=== PATIENT | male | born 1975 | race African-American/Black ===

== ENCOUNTER 2019-06-22 20:17 | Emergency (ER) | payer SELFPAY ==
[~2019-06-22] VITALS: Ht 170.2 cm; Wt 68.0 kg
[2019-06-22 20:49] VITALS: BP 117/70
[2019-06-22] MEDS: TETRACAINE HCL 0.5% OPTH(EYE) SOLN 4ML LEFTEYE ONE (22:45)
== END 2019-06-22 23:28 | disposition home or self-care (01) ==
LOC: ER 20:20
DX: S00.211A Abrasion of right eyelid and periocular area, initial encounter (principal); X58.XXXA Exposure to other specified factors, initial encounter; Y93.89 Activity, other specified; Y99.8 Other external cause status; Y92.89 Other specified places as the place of occurrence of the external cause

== ENCOUNTER 2019-07-20 18:17 | Emergency (ER) | payer SELFPAY ==
[~2019-07-20] VITALS: Ht 167.6 cm; Wt 63.5 kg
[2019-07-20 20:11] VITALS: BP 121/80
[2019-07-20] MEDS ORDERED: FLUORESCEIN SOD 1 MG TEST STRIP LEFTEYE ONE (20:45)
[2019-07-20] MEDS ORDERED: TETRACAINE HCL 0.5% OPTH(EYE) SOLN 4ML LEFTEYE ONE (20:45)
== END 2019-07-20 21:41 | disposition home or self-care (01) ==
LOC: ER 18:18
DX: S05.02XA Injury of conjunctiva and corneal abrasion without foreign body, left eye, initial encounter (principal); F17.210 Nicotine dependence, cigarettes, uncomplicated; F12.10 Cannabis abuse, uncomplicated; Y04.8XXA Assault by other bodily force, initial encounter; Y93.89 Activity, other specified; Y99.8 Other external cause status; Y92.89 Other specified places as the place of occurrence of the external cause

== ENCOUNTER 2022-11-07 10:10 | Emergency (ER) | payer SELFPAY ==
[~2022-11-07] VITALS: Ht 170.2 cm; Wt 61.6 kg
[2022-11-07] MEDS ORDERED: SODIUM CHLORIDE 0.9% 1,000 ML IVB ONE (11:00)
[2022-11-07] MEDS ORDERED: PANTOPRAZOLE 40 MG/10 ML VIAL INJ IV ONE (11:00)
[2022-11-07] MEDS ORDERED: PROCHLORPERAZINE EDISYLATE 5 MG/ML 2ML VIAL IV ONE (11:00)
[2022-11-07] MEDS ORDERED: MORPHINE SULFATE 4 MG/ML SYR/VIAL IV ONE (11:00)
[2022-11-07 11:25] LABS: Basophils # (auto) 0 10 ^3/uL (0-0.2); Eosinophils # (auto) 0 10 ^3/uL (0-0.8); Hemoglobin 15.3 g/dL (13.5-17.5); Monocytes # (auto) 0.2 10 ^3/uL (0-1.3); Neutrophils # (auto) 3.8 10 ^3/uL (1.6-8.6)
[2022-11-07 11:27] LABS: Basophils % (auto) 0.4 % (0.0-2.0); Eosinophils % (auto) 0.1 % (0.0-7.0); Hematocrit 43.9 % (41.0-53.0); Lymphocytes # (auto) 0.9 10 ^3/uL (0.4-5.4); Lymphocytes % (auto) 17.5 % (10.0-50.0); Mean Corpuscular Hemoglobin 35.2 pg (28.0-32.0); Mean Corpuscular Hgb Conc. 34.9 g/dL (32.0-36.0); Mean Corpuscular Volume 100.9 fL (80.0-100.0); Monocytes % (auto) 4.5 % (0.0-12.0); Neutrophils % (auto) 77.5 % (37.0-80.0); Nucleated Red Blood Cells % 0.1 %; Red Blood Cells 4.35 10^6/uL (4.5-5.90); Red Cell Distribution Width 13.4 % (11.8-14.3); White Blood Cell 4.9 10^3/uL (4.4-10.8)
[2022-11-07 11:39] LABS: INR 0.93 (0.9-1.15); Partial Thromboplastin Time 22.9 sec (24.6-33.4)
[2022-11-07 11:52] LABS: Potassium 4.1 mmol/L (3.5-5.1)
[2022-11-07 11:58] LABS: Albumin 3.7 g/dL (3.4-5.0); BUN/Creatinine Ratio 12.6 (10.0-20.0); Bilirubin, Total 0.5 mg/dL (0.2-1.0); Calcium 8.3 mg/dL (8.5-10.1); Magnesium 2.1 mg/dL (1.6-2.6); Total Protein 7.4 g/dL (6.4-8.2)
[2022-11-07] MEDS ORDERED: PANT40TA2 PO (12:29)
[2022-11-07] MEDS ORDERED: ZOFR4T PO (12:29)
[2022-11-07 14:10] VITALS: BP 128/78
== END 2022-11-07 14:14 | disposition home or self-care (01) ==
LOC: ER 10:10
DX: R10.84 Generalized abdominal pain (principal); R74.8 Abnormal levels of other serum enzymes; F12.90 Cannabis use, unspecified, uncomplicated; F17.210 Nicotine dependence, cigarettes, uncomplicated
CPT/HCPCS: 36415; 74176; 80053; 83690; 83735; 85025; 85610; 85730; 96361; 96374; 96375; 99285; C9113; J0780; J7030

== ENCOUNTER 2023-09-02 12:06 | Inpatient (IN) | payer MEDICAID ==
[~2023-09-02] VITALS: Ht 168.9 cm; Wt 60.2 kg
[~2023-09-02 12:06] MED LIST: PANT40TA2 PO; ZOFR4T PO
[2023-09-02 13:19] LABS: Basophils # (auto) 0 10 ^3/uL (0-0.2); Monocytes # (auto) 0.7 10 ^3/uL (0-1.3); Neutrophils # (auto) 8.4 10 ^3/uL (1.6-8.6); Nucleated Red Blood Cells % 0.9 %
[2023-09-02 13:21] LABS: Alanine Aminotransferase 15 U/L (7-40); Albumin 4.3 g/dL (3.2-4.8); Alkaline Phosphatase 102 U/L (46-116); Anion Gap 13 (5-15); Aspartate Aminotransferase 28 U/L (13-40); BUN/Creatinine Ratio 6.4 (10.0-20.0); Bilirubin, Total 0.7 mg/dL (0.2-1.0); Blood Urea Nitrogen 18 mg/dL (9-23); Calcium 9.9 mg/dL (8.7-10.4); Carbon Dioxide 20 mmol/L (20-30); Chloride 97 mmol/L (98-107); Glucose 121 mg/dL (74-106); Lipase 659 U/L (12-53); Potassium 4.2 mmol/L (3.5-5.1); Sodium 130 mmol/L (136-145); Total Protein 7.9 g/dL (5.7-8.2)
[2023-09-02 13:22] LABS: Basophils % (auto) 0.3 % (0.0-2.0); Eosinophils # (auto) 0 10 ^3/uL (0-0.8); Eosinophils % (auto) 0.3 % (0.0-7.0); Hematocrit 52.4 % (41.0-53.0); Hemoglobin 18.2 g/dL (13.5-17.5); Lymphocytes # (auto) 1.1 10 ^3/uL (0.4-5.4); Lymphocytes % (auto) 10.7 % (10.0-50.0); Mean Corpuscular Hemoglobin 34.6 pg (28.0-32.0); Mean Corpuscular Hgb Conc. 34.8 g/dL (32.0-36.0); Mean Corpuscular Volume 99.6 fL (80.0-100.0); Monocytes % (auto) 7.1 % (0.0-12.0); Neutrophils % (auto) 81.6 % (37.0-80.0); Red Blood Cells 5.26 10^6/uL (4.5-5.90); Red Cell Distribution Width 13.1 % (11.8-14.3); White Blood Cell 10.3 10^3/uL (4.4-10.8)
[2023-09-02] MEDS: SODIUM CHLORIDE 0.9% 1,000 ML IV ONE ×2 (14:00→21:24)
[2023-09-02] MEDS ORDERED: MORPHINE SULFATE INJ 2 MG/ml SYRG IV PRN (16:30)
[2023-09-02] MEDS ORDERED: DEXTROSE (50%) 50ML SYRG IV PRN (16:30)
[2023-09-02] MEDS ORDERED: DOCUSATE SOD 100 MG CAP PO PRN (16:30)
[2023-09-02] MEDS ORDERED: ACETAMINOPHEN 325 MG TAB PO PRN (16:30)
[2023-09-02] MEDS ORDERED: NITROGLYCERIN 0.4 MG SL TAB SL PRN (16:30)
[2023-09-02] MEDS ORDERED: HYDROcodone-ACET 5/325MG TAB PO PRN (16:30)
[2023-09-02] MEDS: SODIUM CHLORIDE 0.9% 1,000 ML IV SCH (16:30)
[2023-09-02] MEDS: PIPERACILLIN-TAZOB 3.375GM 100 ML IV ONE (17:39)
[2023-09-02] MEDS: PANTOPRAZOLE 40 MG/10 ML VIAL INJ IV ONE (17:39)
[2023-09-02] MEDS: fentaNYL CITRATE 100 MCG/2 ML VL IV ONE (17:43)
[2023-09-02] MEDS ORDERED: LORazepam 2MG/ML-1ML VIAL IV PRN (19:15)
[2023-09-02] MEDS: FOLIC ACID 1 MG, MAGNESIUM SULF SDV 50% 8 MEQ, MULTIPLE VITAMIN 10 ML, THIAMINE INJ 100... INJ SCH (21:24)
[2023-09-02] MEDS: ONDANSETRON HCL 4 MG/2 ML VIAL IV PRN (21:42)
[2023-09-02] MEDS: MORPHINE SULFATE INJ 2 MG/ml SYRG IV PRN (21:43)
[2023-09-02 21:47] VITALS: PULSE 93; RESP 16; O2SAT 98
[2023-09-02 21:51] LABS: Urine Bacteria FEW /hpf (None Seen); Urine Blood 1+ /uL (Negative); Urine Clarity Turbid (Clear); Urine Color Yellow (Yellow); Urine Protein, UAD 2+ (Negative); Urine Specific Gravity 1.018 (1.001-1.035); Urine Urobilinogen Normal (Negative); Urine WBC 72 /hpf (0 - 3); Urine WBC Clumps PRESENT /hpf (None Seen)
[2023-09-02 22:04] LABS: Amphetamine Screen, Urine Neg (NEGATIVE); Barbiturate Scree,Urine Neg (NEGATIVE); Benzodiazephine Screen, Urine Neg (NEGATIVE); Cannabinoid Screen, Urine Neg (NEGATIVE); Cocaine Screen, Urine Neg (NEGATIVE); Opiate Scree,Urine Neg (NEGATIVE); Phencyclidine Screen, Urine Neg (NEGATIVE)
[2023-09-02] MEDS: ACCU-CHEK COMFORT CURVE STRIP VI SCH (22:23)
[2023-09-02] MEDS: MEROPENEM 1GM IVPB 50 ML IV SCH (22:40)
[2023-09-02 23:55] VITALS: BP 114/76; PULSE 87; RESP 17; TEMP 98.1; O2SAT 98
[2023-09-03] VITALS (8 sets, daily range): BP systolic 100–120; BP diastolic 68–76; PULSE 87–112; RESP 17–20; TEMP 97.7–98.8; O2SAT 94–98
[2023-09-03 05:55] LABS: Basophils # (auto) 0 10 ^3/uL (0-0.2); Basophils % (auto) 0.2 % (0.0-2.0); Eosinophils # (auto) 0.1 10 ^3/uL (0-0.8); Lymphocytes # (auto) 0.7 10 ^3/uL (0.4-5.4); Lymphocytes % (auto) 8.7 % (10.0-50.0); Mean Corpuscular Volume 100.2 fL (80.0-100.0); Monocytes # (auto) 0.6 10 ^3/uL (0-1.3); Monocytes % (auto) 7.8 % (0.0-12.0); Neutrophils # (auto) 6.9 10 ^3/uL (1.6-8.6); Neutrophils % (auto) 82.3 % (37.0-80.0); Nucleated Red Blood Cells % 0.1 %; Red Blood Cells 3.99 10^6/uL (4.5-5.90); Red Cell Distribution Width 13.4 % (11.8-14.3); White Blood Cell 8.3 10^3/uL (4.4-10.8)
[2023-09-03 06:09] LABS: Albumin 3.6 g/dL (3.2-4.8); Alkaline Phosphatase 66 U/L (46-116); Anion Gap 11 (5-15); Aspartate Aminotransferase 25 U/L (13-40); BUN/Creatinine Ratio 6.8 (10.0-20.0); Blood Urea Nitrogen 15 mg/dL (9-23); Calcium 8.6 mg/dL (8.5-10.1); Carbon Dioxide 17 mmol/L (20-30); Glucose 85 mg/dL (74-106); LDL Cholesterol 57 mg/dL (< 100); Potassium 4.5 mmol/L (3.5-5.1); Sodium 137 mmol/L (136-145); Triglycerides 174 mg/dL (< 150)
[2023-09-03 06:10] LABS: Bilirubin, Total 0.8 mg/dL (0.2-1.0); Cholesterol 162 mg/dL (< 200); HDL Cholesterol 29 mg/dL (40-59); Total Protein 6.2 g/dL (5.7-8.2)
[2023-09-03 06:13] LABS: Alanine Aminotransferase < 9 U/L (7-40); Chloride 109 mmol/L (98-107)
[2023-09-03] MEDS ORDERED: PANTOPRAZOLE 40 MG/10 ML VIAL INJ IV SCH (10:00)
[2023-09-03 10:54] LABS: Blood Alcohol < 3.0 mg/dL (<10)
[2023-09-03 11:13] LABS: Lipase 214 U/L (12-53); Magnesium 2.2 mg/dL (1.6-2.6)
[2023-09-03] MEDS: PANTOPRAZOLE 40 MG/10 ML VIAL INJ IV SCH (22:04)
[2023-09-04 05:00] VITALS: BP 120/69; PULSE 78; RESP 18; TEMP 99.9; O2SAT 97
[2023-09-04 05:48] LABS: Basophils # (auto) 0 10 ^3/uL (0-0.2); Basophils % (auto) 0.5 % (0.0-2.0); Eosinophils # (auto) 0.2 10 ^3/uL (0-0.8); Eosinophils % (auto) 3.1 % (0.0-7.0); Hematocrit 34.9 % (41.0-53.0); Hemoglobin 11.9 g/dL (13.5-17.5); Lymphocytes % (auto) 18.3 % (10.0-50.0); Mean Corpuscular Hgb Conc. 34.2 g/dL (32.0-36.0); Mean Corpuscular Volume 102.4 fL (80.0-100.0); Monocytes # (auto) 0.4 10 ^3/uL (0-1.3); Monocytes % (auto) 6.4 % (0.0-12.0); Neutrophils # (auto) 4.1 10 ^3/uL (1.6-8.6); Neutrophils % (auto) 71.7 % (37.0-80.0); Red Blood Cells 3.41 10^6/uL (4.5-5.90); Red Cell Distribution Width 13.1 % (11.8-14.3); White Blood Cell 5.7 10^3/uL (4.4-10.8)
[2023-09-04 06:06] LABS: Albumin 3.3 g/dL (3.2-4.8); Alkaline Phosphatase 54 U/L (46-116); Anion Gap 6 (5-15); Aspartate Aminotransferase 17 U/L (13-40); BUN/Creatinine Ratio 7.3 (10.0-20.0); Blood Urea Nitrogen 9 mg/dL (9-23); Calcium 8.8 mg/dL (8.7-10.4); Carbon Dioxide 22 mmol/L (20-30); Chloride 109 mmol/L (98-107); Glucose 85 mg/dL (74-106); Magnesium 2.2 mg/dL (1.6-2.6); Potassium 4.1 mmol/L (3.5-5.1); Sodium 137 mmol/L (136-145)
[2023-09-04 06:07] LABS: Bilirubin, Total 0.8 mg/dL (0.2-1.0)
[2023-09-04 06:08] LABS: Alanine Aminotransferase < 9 U/L (7-40)
[2023-09-04 08:00] VITALS: PULSE 77
[2023-09-04 09:00] VITALS: BP 109/64; PULSE 86; RESP 17; TEMP 97.1; O2SAT 94
[2023-09-04 13:00] VITALS: BP 130/76; PULSE 89; RESP 16; TEMP 98.7; O2SAT 100
== END 2023-09-04 14:55 | disposition home or self-care (01) | DRG 282 ==
LOC: ER 12:06 → TELE 16:29 → TELE-CENTR 23:30
PROVIDERS: ADMIT Internal Medicine Pulmonary Disease; ATTEND Internal Medicine Pulmonary Disease
DX: K85.20 Alcohol induced acute pancreatitis without necrosis or infection (principal); N17.0 Acute kidney failure with tubular necrosis; E87.20 Acidosis, unspecified; F10.10 Alcohol abuse, uncomplicated; F17.210 Nicotine dependence, cigarettes, uncomplicated; Y90.9 Presence of alcohol in blood, level not specified; E78.5 Hyperlipidemia, unspecified; F19.10 Other psychoactive substance abuse, uncomplicated
CPT/HCPCS: 36415; 74176; 80053; 80061; 80307; 80320; 81001; 82962; 83036; 83605; 83690; 83735; 84484; 85025; 93005; 96361; 96365; 96367; 96375; 99291; C9113; G0378; J2185; J2405; J2543

== ENCOUNTER 2024-04-19 08:19 | Inpatient (IN) | payer SELFPAY ==
[~2024-04-19] VITALS: Ht 167.6 cm; Wt 59.5 kg
--- NOTE | 2024-04-19 08:32 | ED.PDOC ---
GI ASSESSMENT HPI Comments 48-year-old male presents with a chief complaint of abdominal pain x onset yesterday. Patient states that his abdominal pain is localized to his epigastric region, non-radiating, describes as cramping, and rates his pain a 8/10. Patient reports that his last bowel movement was yesterday. Patient denies any nausea, vomiting, diarrhea, fever, chills, or rectal bleeding. Patient denies any injuries or trauma prior to onset of symptoms. No other symptoms or modifying factors present at this time. Chief Complaint: Abdominal Pain Time Seen by MD: 08:27 Primary Care Provider: NONE Reviewed Notes: Medications, Allergies Allergies: Coded Allergies: NO KNOWN ALLERGIES (Unverified , 06/22/19) Home Meds No Active Prescriptions or Reported Meds Information Source: Patient Mode of Arrival: Ambulatory Timing: Days Duration: Since onset Prehospital treatment: None Quality: Cramping Vomitus: None Stool: Normal Severity: Moderate Recent: None Recent Hx of: None Pain Location: Epigastric Past Medical History PAST MEDICAL HISTORY: Denies Surgical History: Denies all surgeries Family History Family History: Reviewed,noncontributory to illness, No family hx of Cancer, No family hx of DM, No family hx of Heart hector, No family hx of HTN, No family hx ofKidney hector, No family hx of Liver hector, No family hx of Lung hector, No family hx of Stroke Social History Smoker: Cigarettes Alcohol: Occasionally Drugs: Marijuana Lives In: Home Constitutional: denies: chills, diaphoresis, fatigue, fever, malaise, sweats, weakness, others EENTM: denies: blurred vision, double vision, ear bleeding, ear discharge, ear drainage, ear pain, ear ringing, eye pain, eye redness, hearing loss, mouth pain, mouth swelling, nasal discharge, nose bleeding, nose congestion, nose pain, photophobia, tearing, throat pain, throat swelling, voice changes, others Respiratory: denies: cough, hemoptysis, orthopnea, SOB at rest, shortness of breath, SOB with excertion, stridor, wheezing, others Cardiovascular: denies: chest pain, dizzy spells, diaphoresis, Dyspnea on exertion, edema, irregular heart beat, left arm pain, lightheadedness, palpitations, PND, syncope, others Gastrointestinal: reports: abdominal pain; denies: abdomen distended, blood streaked bowels, constipated, diarrhea, dysphagia, difficulty swallowing, hematemesis, melena, nausea, poor appetite, poor fluid intake, rectal bleeding, rectal pain, vomiting, others Genitourinary: denies: burning, dysuria, flank pain, frequency, hematuria, incontinence, penile discharge, penile sore, pain, testicle pain, testicle swelling, urgency, others Neurological: denies: dizziness, fainting, headache, left sided numbness, left sided weakness, numbness, paresthesia, pre-existing deficit, right sided numbness, right sided weakness, seizure, speech problems, tingling, tremors, weakness, others Musculoskeletal: denies: back pain, gout, joint pain, joint swelling, muscle pain, muscle stiffness, neck pain, others Integumetry: denies: bruises, change in color, change in hair/nails, dryness, laceration, lesions, lumps, rash, wounds, others Allergic/Immunocompromised: denies: Difficulty Healing, Frequent Infections, Hives, Itching, others Hematologic/Lymphatic: denies: anemia, blood clots, easy bleeding, easy bruising, swollen glands, others Endocrine: denies: excessive hunger, excessive sweating, excessive thirst, excessive urination, flushing, intolerance to cold, intolerance to heat, unexplained weight gain, unexplained weight loss, others Psychiatric: denies: anxiety, bipolar disorder, depression, hopeless, panic disorder, schizophrenia, sleepless, suicidal, others All Other Systems: Reviewed and Negative Physical Exam General Appearance: No Apparent Distress, Normal HEENT: Normal ENT Inspection, Pharynx Normal, TMs Normal Neck: Full Range of Motion, Non-Tender, Normal, Normal Inspection Respiratory: Chest Non-Tender, Lungs Clear, No Accessory Muscle Use, No R espiratory Distress, Normal Breath Sounds Cardiovascular: No Edema, No JVD, No Murmur, No Gallop, Normal Peripheral Pulses, Regular Rate/Rhythm Breast Exam: Deferred Gastrointestinal: Epigastric, No Organomegaly, No Pulsatile Mass, Normal Bowel Sounds, Soft, Tenderness Genitalia: Deferred Pelvic: Deferred Rectal: Deferred Extremities: No calf tenderness, Normal capillary refill, Normal inspection, Normal range of motion, Non-tender, No pedal edema Musculoskeletal : Apperance: Normal Neurologic: Alert, film crew member II-XII nml as Tested, No Motor Deficits, Normal Affect, Normal Mood, No Sensory Deficits Cerebellar Function: Normal Reflexes: Normal Skin: Dry, Normal Color, Warm Lymphatic: No Adenopathy Was a procedure done? Was a procedure done?: No GI differential Dx Differential Diagnosis: Appendicitis, Gastroenteritis, Hepatitis, Pancreatitis, Urolithiasis, Dehydration, Electrolyte Imbalance, Hypovolemia X-Ray, Labs, Meds, VS Vital Signs Date Time Temp Pulse Resp B/P (MAP) Pulse Ox O2 Delivery O2 Flow Rate FiO2 04/19/24 08:52 Room Air* 0 21 04/19/24 08:51 98.3 70 15 123/64 (83) 98 98.3 04/19/24 08:24 99.0 106 18 125/80 (95) 100 Lab Test 04/19/24 08:35 Range/Units White Blood Count 7.6 4.4-10.8 10^3/uL Red Blood Count 4.69 4.5-5.90 10^6/uL Hemoglobin 16.7 13.5-17.5 g/dL Hematocrit 47.9 41.0-53.0 % Mean Corpuscular Volume 102.1 H 80.0-100.0 fL Mean Corpuscular Hemoglobin 35.6 H 28.0-32.0 pg Mean Corpuscular Hemoglobin Concent 34.9 32.0-36.0 g/dL Red Cell Distribution Width 13.6 11.8-14.3 % Platelet Count 167 140-450 10^3/uL Mean Platelet Volume 7.8 6.9-10.8 fL Neutrophils (%) (Auto) 79.0 37.0-80.0 % Lymphocytes (%) (Auto) 11.3 10.0-50.0 % Monocytes (%) (Auto) 9.4 0.0-12.0 % Eosinophils (%) (Auto) 0.0 0.0-7.0 % Basophils (%) (Auto) 0.3 0.0-2.0 % Neutrophils # (Auto) 6.0 1.6-8.6 10 ^3/uL Lymphocytes # (Auto) 0.9 0.4-5.4 10 ^3/uL Monocytes # (Auto) 0.7 0-1.3 10 ^3/uL Eosinophils # (Auto) 0 0-0.8 10 ^3/uL Basophils # (Auto) 0 0-0.2 10 ^3/uL Nucleated Red Blood Cells 0.1 % Sodium Level 131 L 136-145 mmol/L Potassium Level 4.1 3.5-5.1 mmol/L Chloride Level 97 L 98-107 mmol/L Carbon Dioxide Level 15 L 20-31 mmol/L Anion Gap 19 H 5-15 Blood Urea Nitrogen 10 9-23 mg/dL Creatinine 1.10 0.700-1.30 mg/dL Glomerular Filtration Rate Calc 83 >90 mL/min BUN/Creatinine Ratio 9.1 L 10.0-20.0 Serum Glucose 127 H 74-106 mg/dL Calcium Level 9.9 8.7-10.4 mg/dL Total Bilirubin 1.6 H 0.2-1.0 mg/dL Aspartate Amino Transferase (AST) 55 H 13-40 U/L Alanine Aminotransferase (ALT) 43 H 7-40 U/L Alkaline Phosphatase 128 H 46-116 U/L Total Protein 7.7 5.7-8.2 g/dL Albumin 4.0 3.2-4.8 g/dL Lipase 120 H 12-53 U/L Current Medications Medications (Trade) Dose Ordered Sig/Horacio Route Start Time Stop Time Status Last Admin Sodium Chloride 1,000 ml @ 1,000 mls/hr Q1H ONCE IV 04/19/24 08:30 04/19/24 09:29 DC 04/19/24 08:49 Ketorolac Tromethamine (Toradol Injection) 15 mg ONCE ONCE IV 04/19/24 08:30 04/19/24 08:31 DC 04/19/24 08:49 Time of 1ST Reevaluation: 08:57 Reevaluation 1ST: Unchanged Patient Education/Counseling: Diagnosis, Treatment, Prognosis Family Education/Counseling: No Family Present Departure 1 Departure Time of Disposition: 11:22 (Patient presented with abdominal pain that was concerning for possible appendicits, gastritis, cholecystitis, colitis, gastr oenteritis, sbo, or orther possible surgical emergency. Data: 1. I ordered and reviewed the result of at least 3 labs including a CBC, BMP, and Urinalysis. 2. I independently interpreted the following tests: CT Abdoment and Pelvis is concerning for acute pancreatitis .Risk:This patient has a high risk of morbidity due to further diagnostic testing or treatment and may suffer from an acute abdominal process disorder. Workup reveals acute pancreatitis with fluid collection and patient should be admitted for further workup. and possible expert consultation. ) Impression: Primary Impression: Acute pancreatitis Qualified Codes: K85.91 - Acute pancreatitis with uninfected necrosis, unspecified Additional Impression: Acute abdominal pain Disposition: ADMITTED INPATIENT Admit to: Med Surg Condition: Serious e-Prescriptions No Active Prescriptions or Reported Meds Critical Care Note Critical Care Time?: Yes Critical care comment: Intractable abdominal pain Authorized and Performed by: Jamie Newman MD Total critical care time: Approximately 39 minutes Due to a high probability of clinically significant, life threatening deterioration, the patient required my highest level of preparedness to intervene emergently and I personally spent this critical care time directly and personally managing the patient. This critical care time included obtaining a history; examining the patient; pulse oximetry; ordering and review of studies; arranging urgent treatment with development of a management plan; evaluation of patient's response to treatment; frequent reassessment; and, discussions with other providers. This critical care time was performed to assess and manage the high probability of imminent, life-threatening deterioration that could result in multi-organ failure. It was exclusive of separately billable procedures and treating other patients and teaching time. Please see my other sections and the rest of the note for further information on patient assessment and treatment. Stability Stability form required: No I personally scribed for JAMIE NEWMAN MD ([email or web address]) on 04/19/24 at 08:32. Electronically submitted by Wilmar Eric ([email or web address]). JAMIE NEWMAN MD Apr 19, 2024 08:32
[2024-04-19] MEDS: KETOROLAC TROMETH 30 MG/ML 1ML VIAL IV ONE (08:49)
[2024-04-19] MEDS: SODIUM CHLORIDE 0.9% 1,000 ML IV ONE (08:49)
[2024-04-19 09:08] LABS: Basophils # (auto) 0 10 ^3/uL (0-0.2); Basophils % (auto) 0.3 % (0.0-2.0); Eosinophils # (auto) 0 10 ^3/uL (0-0.8); Hematocrit 47.9 % (41.0-53.0); Hemoglobin 16.7 g/dL (13.5-17.5); Lymphocytes # (auto) 0.9 10 ^3/uL (0.4-5.4); Lymphocytes % (auto) 11.3 % (10.0-50.0); Mean Corpuscular Hemoglobin 35.6 pg (28.0-32.0); Mean Corpuscular Hgb Conc. 34.9 g/dL (32.0-36.0); Mean Corpuscular Volume 102.1 fL (80.0-100.0); Monocytes # (auto) 0.7 10 ^3/uL (0-1.3); Monocytes % (auto) 9.4 % (0.0-12.0); Nucleated Red Blood Cells % 0.1 %; Platelet Count (auto) 167 10^3/uL (140-450); Red Blood Cells 4.69 10^6/uL (4.5-5.90); Red Cell Distribution Width 13.6 % (11.8-14.3); White Blood Cell 7.6 10^3/uL (4.4-10.8)
[2024-04-19] MEDS: ONDANSETRON HCL 4 MG/2 ML VIAL IV ONE ×2 (09:32→11:48)
[2024-04-19 09:34] LABS: Alanine Aminotransferase 43 U/L (7-40); Alkaline Phosphatase 128 U/L (46-116); Anion Gap 19 (5-15); Aspartate Aminotransferase 55 U/L (13-40); BUN/Creatinine Ratio 9.1 (10.0-20.0); Bilirubin, Total 1.6 mg/dL (0.2-1.0); Blood Urea Nitrogen 10 mg/dL (9-23); Calcium 9.9 mg/dL (8.7-10.4); Carbon Dioxide 15 mmol/L (20-31); Chloride 97 mmol/L (98-107); Glucose 127 mg/dL (74-106); Potassium 4.1 mmol/L (3.5-5.1); Sodium 131 mmol/L (136-145); Total Protein 7.7 g/dL (5.7-8.2)
[2024-04-19] MEDS: IOHEXOL 300 MG/ML 100ML BOTTLE IJ ONE (09:40)
--- NOTE | 2024-04-19 10:15 | DVH ---
Exam: CT CT AB PEL WITH IV CON ONLY History: llq abdominal pain TECHNIQUE: A digital block tester image was obtained. During the uneventful, intravenous administration of c ontrast material, multislice data acquisition was obtained through the abdomen and pelvis. The data s et was subsequently reconstructed into axial images. Images were reviewed on a work station using a c ombination of axial and multiplanar using a variety of window levels and settings. 100 cc of Omnipaqu e 300 contrast was injected intravenously. All CT scans at this medical facility are performed using dose modulation techniques as appropriate t o a performed exam including the following:Automated exposure control was utilized; adjustment of the MA and/or KV according to patient size; and use of iterative reconstruction technique. Radiation Dose Information: CT Dose: CTDI volume is 5.07 mGy. Dose-length product is 285.06 mGy*cm Comparison: CT CT AB PEL WO CON-NO ORAL OR IV on DOS: 09/02/23, CT CT AB PEL WO CON-NO ORAL OR IV on D OS: 11/07/22 FINDINGS: There is moderate fat stranding along the posterior body and tail of the pancreas compatible with acu te pancreatitis. There is approximately 2.7 x 4.5 cm fluid collection along the inferior margins of t he body of the pancreas without discrete enhancing hammond or loculation ( axial image 32). There is diffuse fatty infiltration of the liver. There is a small atrophic right kidney with areas of cortical thinning / scarring. There is compensat ory hypertrophy of the left kidney. There is no evidence of nephrolithiasis or hydronephrosis. The gallbladder, adrenal glands, and spleen appear within normal limits. There is no evidence of abdominal lymphadenopathy. There is no free fluid or free air. The stomach grossly appears unremarkable. The small and large bowel loops demonstrate normal caliber. The abdominal aorta and IVC appear within normal limits. The bladder appears within normal limits the degree of distention. Pelvic organs is unremarkable. Th ere is no evidence of a pelvic mass or lymphadenopathy. There is no free fluid collection. Lung bases are clear. There is no acute osseous abnormality. IMPRESSION: 1. Moderate fat stranding along the posterior body and tail of the pancreas compatible with acute kearns creatitis. 2. Approximately 2.7 x 4.5 cm fluid collection along the inferior margins of the body of the pancreas without discrete enhancing hammond or loculation. Continued CT surveillance is recommended. 3. Hepatic steatosis. 4. Small atrophic right kidney. HS:Y
[2024-04-19 10:36] LABS: Lipase 120 U/L (12-53)
--- NOTE | 2024-04-19 11:45 | DVHHP2 ---
History of Present Illness Reason for Visit: Abdominal pain History of Present Illness Alfredo Beltran is a 48YO M who presents to [facility] ED with abdominal pain x 1 day. Patient reports pain is 5/10 in the epigastric area that is throbbing. Patient reports he drinks 350cc of Patron per day with a couple of other friends daily and smokes marijuana including cigarettes 1/2 pack per day. Patient denies N/V/D, chest pain, fever, chills, shortness of breath, and withdrawals. Past Surgical History: None Family History: Other (mom - open heart surgery 02/2024) Smoke: <1 pack per day ALCOHOL: heavy Drugs: None Lives: with Family Domestic Violence: Neg Review of Systems Allergies: Coded Allergies: NO KNOWN ALLERGIES (Unverified , 06/22/19) Exam Vital Signs Vital Signs Date Time Temp Pulse Resp B/P (MAP) Pulse Ox O2 Delivery O2 Flow Rate FiO2 04/19/24 08:52 Room Air* 0 21 04/19/24 08:51 98.3 70 15 123/64 (83) 98 98.3 Labs/Xrays Labs Test 04/19/24 08:35 Range/Units White Blood Count 7.6 4.4-10.8 10^3/uL Red Blood Count 4.69 4.5-5.90 10^6/uL Hemoglobin 16.7 13.5-17.5 g/dL Hematocrit 47.9 41.0-53.0 % Mean Corpuscular Volume 102.1 H 80.0-100.0 fL Mean Corpuscular Hemoglobin 35.6 H 28.0-32.0 pg Mean Corpuscular Hemoglobin Concent 34.9 32.0-36.0 g/dL Red Cell Distribution Width 13.6 11.8-14.3 % Platelet Count 167 140-450 10^3/uL Mean Platelet Volume 7.8 6.9-10.8 fL Neutrophils (%) (Auto) 79.0 37.0-80.0 % Lymphocytes (%) (Auto) 11.3 10.0-50.0 % Monocytes (%) (Auto) 9.4 0.0-12.0 % Eosinophils (%) (Auto) 0.0 0.0-7.0 % Basophils (%) (Auto) 0.3 0.0-2.0 % Neutrophils # (Auto) 6.0 1.6-8.6 10 ^3/uL Lymphocytes # (Auto) 0.9 0.4-5.4 10 ^3/uL Monocytes # (Auto) 0.7 0-1.3 10 ^3/uL Eosinophils # (Auto) 0 0-0.8 10 ^3/uL Basophils # (Auto) 0 0-0.2 10 ^3/uL Nucleated Red Blood Cells 0.1 % Sodium Level 131 L 136-145 mmol/L Potassium Level 4.1 3.5-5.1 mmol/L Chloride Level 97 L 98-107 mmol/L Carbon Dioxide Level 15 L 20-31 mmol/L Anion Gap 19 H 5-15 Blood Urea Nitrogen 10 9-23 mg/dL Creatinine 1.10 0.700-1.30 mg/dL Glomerular Filtration Rate Calc 83 >90 mL/min BUN/Creatinine Ratio 9.1 L 10.0-20.0 Serum Glucose 127 H 74-106 mg/dL Calcium Level 9.9 8.7-10.4 mg/dL Total Bilirubin 1.6 H 0.2-1.0 mg/dL Aspartate Amino Transferase (AST) 55 H 13-40 U/L Alanine Aminotransferase (ALT) 43 H 7-40 U/L Alkaline Phosphatase 128 H 46-116 U/L Total Protein 7.7 5.7-8.2 g/dL Albumin 4.0 3.2-4.8 g/dL Lipase 120 H 12-53 U/L Exam: CT CT AB PEL WITH IV CON ONLY History: llq abdominal pain FINDINGS: There is moderate fat stranding along the posterior body and tail of the pancreas compatible with acute pancreatitis. There is approximately 2.7 x 4.5 cm fluid collection along the inferior margins of the body of the pancreas without discrete enhancing hammond or loculation ( axial image 32). There is diffuse fatty infiltration of the liver. There is a small atrophic right kidney with areas of cortical thinning / scarring. There is compensatory hypertrophy of the left kidney. There is no evidence of nephrolithiasis or hydronephrosis. The gallbladder, adrenal glands, and spleen appear within normal limits. There is no evidence of abdominal lymphadenopathy. There is no free fluid or free air. The stomach grossly appears unremarkable. The small and large bowel loops demonstrate normal caliber. The abdominal aorta and IVC appear within normal limits. The bladder appears within normal limits the degree of distention. Pelvic organs is unremarkable. There is no evidence of a pelvic mass or lymphad enopathy. There is no free fluid collection. Lung bases are clear. There is no acute osseous abnormality. IMPRESSION: 1. Moderate fat stranding along the posterior body and tail of the pancreas compatible with acute pancreatitis. 2. Approximately 2.7 x 4.5 cm fluid collection along the inferior margins of the body of the pancreas without discrete enhancing hammond or loculation. Continued CT surveillance is recommended. 3. Hepatic steatosis. 4. Small atrophic right kidney. Assessment/Plan Assessment/Plan Assessment: Acute pancreatitis Transaminitis Hepatic steatosis Small atrophic right kidney Hyponatremia Plan: Admit to med surg GI consult IVf IV Abx Pain management Antiemetics NPO - Bowel rest CIWA protocol Monitor labs AM labs Discussed plan of care with patient and nurse Plan discussed with: Patient Problem List: (1) Acute pancreatitis Date of Service: Apr 19, 2024 Billing Provider: TARA HOLLEY Common Visit Codes: 43226-[id number] INP/OBS CARE (MOD) TARA HOLLEY Apr 19, 2024 11:45
[2024-04-19] MEDS: MORPHINE SULFATE 4 MG/ML SYR/VIAL IV ONE (11:48)
[2024-04-19] MEDS ORDERED: DOCUSATE SOD 100 MG CAP PO PRN (12:15)
[2024-04-19] MEDS ORDERED: HYDROcodone-ACET 5/325MG TAB PO PRN (12:15)
[2024-04-19] MEDS: SODIUM CHLORIDE 0.9% 1,000 ML IV SCH (12:15)
[2024-04-19] MEDS ORDERED: ONDANSETRON HCL 4 MG/2 ML VIAL IV PRN (12:15)
[2024-04-19 14:13] LABS: Erythrocyte Sedimentation Rate 2 mm/hr (0-20)
[2024-04-19 16:03] LABS: Urine Bacteria None Seen /hpf (None Seen)
[2024-04-19 16:20] LABS: Urine Blood Negative /uL (Negative); Urine Clarity Clear (Clear); Urine Color Light-Orange (Yellow); Urine Protein, UAD 1+ (Negative); Urine Urobilinogen Normal (Negative); Urine WBC 1 /hpf (0 - 3); Urine pH 6.5 (5.0-9.0)
[2024-04-19 16:24] LABS: Urine Specific Gravity > 1.050 (1.001-1.035)
[2024-04-19 18:15] VITALS: BP 118/67; PULSE 76; TEMP 99; O2SAT 98
[2024-04-19] MEDS: MORPHINE SULFATE INJ 2 MG/ml SYRG IV PRN (18:37)
[2024-04-19] MEDS: metroNIDAZOLE 500MG/100ML 100 ML IV SCH (22:26)
[2024-04-20] VITALS (8 sets, daily range): BP systolic 93–103; BP diastolic 60–67; PULSE 98–109; RESP 16–19; TEMP 98.2–99.5; O2SAT 94–99
[2024-04-20 04:13] LABS: Basophils # (auto) 0 10 ^3/uL (0-0.2); Eosinophils # (auto) 0.1 10 ^3/uL (0-0.8); Lymphocytes # (auto) 1.2 10 ^3/uL (0.4-5.4); Lymphocytes % (auto) 19.2 % (10.0-50.0); Mean Corpuscular Hgb Conc. 35.3 g/dL (32.0-36.0); Monocytes # (auto) 0.4 10 ^3/uL (0-1.3); Nucleated Red Blood Cells % 0.1 %; Red Blood Cells 3.78 10^6/uL (4.5-5.90)
[2024-04-20 04:19] LABS: Alanine Aminotransferase 23 U/L (7-40); Albumin 3.5 g/dL (3.2-4.8); Alkaline Phosphatase 101 U/L (46-116); Anion Gap 13 (5-15); Aspartate Aminotransferase 39 U/L (13-40); BUN/Creatinine Ratio 6.4 (10.0-20.0); Blood Urea Nitrogen 8 mg/dL (9-23); Calcium 8.8 mg/dL (8.7-10.4); Carbon Dioxide 20 mmol/L (20-31); Chloride 104 mmol/L (98-107); Glucose 73 mg/dL (74-106); Lipase 65 U/L (12-53); Potassium 4.2 mmol/L (3.5-5.1); Sodium 137 mmol/L (136-145)
[2024-04-20 04:20] LABS: Bilirubin, Total 1.2 mg/dL (0.2-1.0)
[2024-04-20 04:22] LABS: Basophils % (auto) 0.2 % (0.0-2.0); Eosinophils % (auto) 1.1 % (0.0-7.0); Hematocrit 38.3 % (41.0-53.0); Hemoglobin 13.5 g/dL (13.5-17.5); Mean Corpuscular Hemoglobin 35.7 pg (28.0-32.0); Mean Corpuscular Volume 101.4 fL (80.0-100.0); Monocytes % (auto) 7.1 % (0.0-12.0); Neutrophils # (auto) 4.5 10 ^3/uL (1.6-8.6); Neutrophils % (auto) 72.4 % (37.0-80.0); Platelet Count (auto) 118 10^3/uL (140-450); Red Cell Distribution Width 13.1 % (11.8-14.3); White Blood Cell 6.2 10^3/uL (4.4-10.8)
[2024-04-20] MEDS: metroNIDAZOLE 500MG/100ML 100 ML IV ONE (05:11)
[2024-04-20 09:22] LABS: Triglycerides 603 mg/dL (< 150)
[2024-04-20 09:24] LABS: Cholesterol 400 mg/dL (< 200); HDL Cholesterol 26 mg/dL (40-59)
--- NOTE | 2024-04-20 10:06 | DVH ---
ULTRASOUND ABDOMEN COMPLETE INDICATION: rule out choelcystitis TECHNIQUE: Multiple real-time sonographic images of the abdomen were obtained. COMPARISON: CT abdomen 09/02/2023 FINDINGS: The visualized liver parenchyma appears homogenous . The liver measures 15.7 cm. There is a 1.4 x 1.3 cm well-circumscribed echogenic nodule in the right hepatic lobe compatible with a cavernous hem angioma. There is no evidence of gallstones, gallbladder wall thickening or pericholecystic fluid. The common biliary duct is not dilated. The right kidney measures 7.1 cm length. The left kidney measures 11.6 cm. The right kidney appea rs asymmetrically smaller than the left. There is no sonographic evidence of nephrolithiasis or hydro nephrosis. The spleen measures 9.1 cm and appears within normal limits. Visualized portions of the pancreas appears within normal limits. Pancreas is obscured by bowel gas. The visualized portions of the IVC and aorta are grossly unremarkable. IMPRESSION: 1. 1.4 cm well-circumscribed echogenic nodule in the right hepatic lobe compatible with a cavernous h emangioma. 2. The right kidney appears asymmetrically smaller than the left. There is no sonographic evidence o f nephrolithiasis or hydronephrosis. HS:Y
[2024-04-20] MEDS: PANTOPRAZOLE 40 MG/10 ML VIAL INJ IV SCH (10:16)
[2024-04-20] MEDS: GEMFIBROZIL 600 MG TAB PO SCH (10:23)
[2024-04-20] MEDS: cefTRIAXone 1GM/50ML D5W 50 ML IV SCH (10:23)
[2024-04-20 15:16] LABS: Urine Bacteria None Seen /hpf (None Seen)
[2024-04-20 15:28] LABS: Urine Blood Negative /uL (Negative); Urine Clarity Clear (Clear); Urine Color Light-Orange (Yellow); Urine Hyaline Cast FEW /lpf (0 - 2); Urine Mucus FEW (None Seen); Urine Protein, UAD 1+ (Negative); Urine Urobilinogen Normal (Negative); Urine WBC 2 /hpf (0 - 3); Urine pH 6.5 (5.0-9.0)
[2024-04-20] MEDS ORDERED: CIPR500T4 PO (16:32)
[2024-04-20] MEDS ORDERED: MET500T PO (16:32)
[2024-04-20] MEDS ORDERED: GEMF-66 PO (16:32)
--- NOTE | 2024-04-20 18:24 | DVHDSRES ---
Discharge Summary Date of Admission Resident Creating Document: CARLITO CENTENO RESIDENT Apr 19, 2024 at 12:12 Date of Discharge: Apr 20, 2024 Admitting Diagnosis acute on chronic pancreatitis Labs/Diagnostic Data: Laboratory Results Test 04/20/24 15:14 04/20/24 03:19 04/19/24 08:35 Urine Color Light-orange (Yellow) Urine Clarity Clear (Clear) Urine pH 6.5 (5.0-9.0) Urine Specific [place] 1.030 (1.001-1.035) Urine Protein 1+ (Negative) Urine Ketones 2+ (Negative) Urine Blood Negative /uL (Negative) Urine Nitrite Negative (Negative) Urine Bilirubin Negative (Negative) Urine Urobilinogen Normal mg/dL (Negative) Urine Leukocyte Esterase Negative /uL (Negative) Urine RBC 1 /hpf (0 - 3) Urine WBC 2 /hpf (0 - 3) Urine Squamous Epithelial Cells Few /hpf (<5) Urine Bacteria None seen /hpf (None Seen) Urine Hyaline Casts Few /lpf (0 - 2) Urine Mucus Few (None Seen) Urine Glucose Normal mg/dL (Normal) White Blood Count 6.2 10^3/uL (4.4-10.8) Red Blood Count 3.78 10^6/uL (4.5-5.90) Hemoglobin 13.5 g/dL (13.5-17.5) Hematocrit 38.3 % (41.0-53.0) Mean Corpuscular Volume 101.4 fL (80.0-100.0) Mean Corpuscular Hemoglobin 35.7 pg (28.0-32.0) Mean Corpuscular Hemoglobin Concent 35.3 g/dL (32.0-36.0) Red Cell Distribution Width 13.1 % (11.8-14.3) Platelet Count 118 10^3/uL (140-450) Mean Platelet Volume 8.5 fL (6.9-10.8) Neutrophils (%) (Auto) 72.4 % (37.0-80.0) Lymphocytes (%) (Auto) 19.2 % (10.0-50.0) Monocytes (%) (Auto) 7.1 % (0.0-12.0) Eosinophils (%) (Auto) 1.1 % (0.0-7.0) Basophils (%) (Auto) 0.2 % (0.0-2.0) Neutrophils # (Auto) 4.5 10 ^3/uL (1.6-8.6) Lymphocytes # (Auto) 1.2 10 ^3/uL (0.4-5.4) Monocytes # (Auto) 0.4 10 ^3/uL (0-1.3) Eosinophils # (Auto) 0.1 10 ^3/uL (0-0.8) Basophils # (Auto) 0 10 ^3/uL (0-0.2) Nucleated Red Blood Cells 0.1 % Sodium Level 137 mmol/L (136-145) Potassium Level 4.2 mmol/L (3.5-5.1) Chloride Level 104 mmol/L (98-107) Carbon Dioxide Level 20 mmol/L (20-31) Anion Gap 13 (5-15) Blood Urea Nitrogen 8 mg/dL (9-23) Creatinine 1.25 mg/dL (0.700-1.30) Glomerular Filtration Rate Calc 71 mL/min (>90) BUN/Creatinine Ratio 6.4 (10.0-20.0) Serum Glucose 73 mg/dL (74-106) Calcium Level 8.8 mg/dL (8.7-10.4) Total Bilirubin 1.2 mg/dL (0.2-1.0) Aspartate Amino Transferase (AST) 39 U/L (13-40) Alanine Aminotransferase (ALT) 23 U/L (7-40) Alkaline Phosphatase 101 U/L (46-116) Total Protein 6.0 g/dL (5.7-8.2) Albumin 3.5 g/dL (3.2-4.8) Triglycerides Level 603 mg/dL (< 150) Cholesterol Level 400 mg/dL (< 200) LDL Cholesterol mg/dL (< 100) HDL Cholesterol 26 mg/dL (40-59) Lipase 65 U/L (12-53) Erythrocyte Sedimentation Rate 2 mm/hr (0-20) C-Reactive Protein High Sensitivity 1.70 mg/dL (<1.0) Plasma/Serum Blood Alcohol < 3.0 mg/dL (<10) Other Laboratory Tests 04/20/24 03:19 Brief Hx & Hospital Course: A 48-year-old male with a history of significant alcohol use and hypertriglyceridemia presented with acute epigastric pain. Imaging and laboratory findings confirmed a diagnosis of acute on chronic pancreatitis, attributed to alcohol use and possible hypertriglyceridemia. An abdominal ultrasound revealed hepatic steatosis and a small atrophic right kidney but no evidence of gallstones or obstruction. Laboratory tests showed elevated lipase, bilirubin, and triglycerides, further supporting the diagnosis. The patient was treated with IV fluids, pain control, and supportive care during his hospitalization. The patient was discharged in stable condition with prescriptions for fenofibrate to manage hypertriglyceridemia, oral antibiotics and pain medication. He was counseled extensively on the importance of alcohol cessation and dietary modifications to prevent future pancreatitis episodes. Follow-up with [facility] for continued monitoring and management of his chronic pancreatitis and hyperlipidemia. HEENT: Normocephalic, atraumatic. Pupils equal, round, and reactive to light. Extraocular movements intact. Oropharynx clear, no lesions. Neck: Supple, no lymphadenopathy, thyroid non-enlarged, no jugular venous distention. Cardiovascular: Regular rate and rhythm, no murmurs, rubs, or gallops. Peripheral pulses 2+ bilaterally. Respiratory: Clear to auscultation bilaterally, no wheezes, rales, or rhonchi. Abdomen: Soft, non-tender, non-distended. No masses, hepatosplenomegaly, or rebound tenderness. Bowel sounds normal. Musculoskeletal: No deformities or tenderness. Full range of motion in all major joints. Neurological: Alert and oriented to person, place, and time. Cranial nerves II- XII intact. Strength 5/5 in all extremities. Sensation intact to light touch and proprioception. Reflexes 2+ and symmetric. Normal gait. Skin: Warm, dry, no rashes or lesions. Extremities: No edema, cyanosis, or clubbing. Case discussed with Dr Frost Time spent on care 23 min Operations or Procedures Exam: CT CT AB PEL WITH IV CON ONLY History: llq abdominal pain TECHNIQUE: A digital building performance specialist image was obtained. During the uneventful, intravenous administration of contrast material, multislice data acquisition was obtained through the abdomen and pelvis. The data set was subsequently reconstructed into axial images. Images were reviewed on a work station using a combination of axial and multiplanar using a variety of window levels and settings. 100 cc of Omnipaque 300 contrast was injected intravenously. All CT scans at this medical facility are performed using dose modulation techniques as appropriate to a performed exam including the following:Automated exposure control was utilized; adjustment of the MA and/or KV according to patient size; and use of iterative reconstruction technique. Radiation Dose Information: CT Dose: CTDI volume is 5.07 mGy. Dose-length product is 285.06 mGy*cm Comparison: CT CT AB PEL WO CON-NO ORAL OR IV on DOS: 09/02/23, CT CT AB PEL WO CON-NO ORAL OR IV on DOS: 11/07/22 FINDINGS: There is moderate fat stranding along the posterior body and tail of the pancreas compatible with acute pancreatitis. There is approximately 2.7 x 4.5 cm fluid collection along the inferior margins of the body of the pancreas without discrete enhancing hammond or loculation ( axial image 32). There is diffuse fatty infiltration of the liver. There is a small atrophic right kidney with areas of cortical thinning / scarring. There is compensatory hypertrophy of the left kidney. There is no evidence of nephrolithiasis or hydronephrosis. The gallbladder, adrenal glands, and spleen appear within normal limits. There is no evidence of abdominal lymphadenopathy. There is no free fluid or free air. The stomach grossly appears unremarkable. The small and large bowel loops demonstrate normal caliber. The abdominal aorta and IVC appear within normal limits. The bladder appears within normal limits the degree of distention. Pelvic organs is unremarkable. There is no evidence of a pelvic mass or lymphadenopathy. There is no free fluid collection. Lung bases are clear. There is no acute osseous abnormality. IMPRESSION: 1. Moderate fat stranding along the posterior body and tail of the pancreas compatible with acute pancreatitis. 2. Approximately 2.7 x 4.5 cm fluid collection along the inferior margins of the body of the pancreas without discrete enhancing hammond or loculation. Continued CT surveillance is recommended. 3. Hepatic steatosis. 4. Small atrophic right kidney. Condition at Discharge: Stable Final Diagnosis/Problems List acute on chronic pancreatitis due to alcoholism and hypertrygliceridiemia hypertrigliceridemia Transaminitis Hepatic steatosis Small atrophic right kidney Hyponatremia resolved pancreatic cyst Discharge Disposition: Home Discharge Instruct/Medications Diet: Consistent carbohydrate, Cardiac 2g Na,low cholest Diet comment: low fat diet, no alcohol Activity: No Restrictions, As Tolerated Follow Up/Referral: [facility] Medications: see prescription Discharge Statement: "Patient was advised to return to the ER or call 911 if any headaches, dizziness, shortness of breath, chest pain, abdominal pain, bleeding, fevers, or worsening of medical condition. Patient was counseled about treatment plan, medications, possible side effects, patientverbalized understanding. All questions were answered to the best of my ability. This discharge took greater then 30 minutes in planning, reviewing documentation, counseling the patient, and discussing with other team members." ASSESSMENT ASSESSMENT Assessment acute on chronic pancreatitis Date of Service: Apr 20, 2024 Billing Provider: ALLYSSA FROST MD Common Visit Codes: 11553-EEI/OBS DISCH DAY >30min Coding Comment Comment Attending Attestation I saw and evaluated the patient. I reviewed the residents note and agree with findings and plan as documented in the residents note except as documented below. CARLITO CENTENO RESIDENT Apr 20, 2024 18:24 ALLYSSA FROST MD Apr 21, 2024 22:00
== END 2024-04-20 16:50 | disposition left against medical advice (07) | DRG 439 ==
LOC: ER 08:19 → OVERFLOW 12:12 → WEST WING 04-20 06:55
PROVIDERS: ADMIT Student in an Organized Health Care Education/Training Program; ATTEND Student in an Organized Health Care Education/Training Program
DX: K85.20 Alcohol induced acute pancreatitis without necrosis or infection (principal); E87.1 Hypo-osmolality and hyponatremia; K86.2 Cyst of pancreas; K86.0 Alcohol-induced chronic pancreatitis; E78.1 Pure hyperglyceridemia; K76.0 Fatty (change of) liver, not elsewhere classified; N26.1 Atrophy of kidney (terminal); F17.210 Nicotine dependence, cigarettes, uncomplicated; F10.20 Alcohol dependence, uncomplicated; Y90.0 Blood alcohol level of less than 20 mg/100 ml; Z53.29 Procedure and treatment not carried out because of patient's decision for other reasons
CPT/HCPCS: 36415; 74177; 76700; 80053; 80061; 80320; 81001; 83690; 85025; 85652; 86141; 87040; 87086; 99291; G0378; J1885; J2405; J2470; J3490